=== PATIENT | female | born 1995 | race Two or more races ===

== ENCOUNTER 2022-04-29 11:33 | Emergency (ER) | payer SELFPAY ==
[~2022-04-29] VITALS: Ht 172.7 cm; Wt 49.9 kg
--- NOTE | 2022-04-29 12:02 | NUR ---
patient came back from ct
[2022-04-29] MEDS ORDERED: LIDOCAINE 1%-EPI 1:100,000 20 ML VIAL ONE (12:48)
[2022-04-29 13:36] VITALS: BP 125/64
--- NOTE | 2022-04-29 13:37 | NUR ---
Patient discharged to home in stable condition. Written and verbal after care instructions given. Patient verbalizes understanding of instruction.
== END 2022-04-29 13:37 | disposition home or self-care (01) ==
LOC: ER 11:42
DX: S01.01XA Laceration without foreign body of scalp, initial encounter (principal); W10.9XXA Fall (on) (from) unspecified stairs and steps, initial encounter; Y93.89 Activity, other specified; Y92.89 Other specified places as the place of occurrence of the external cause; Y99.8 Other external cause status
CPT/HCPCS: 99284; 70450; 12002; A6403 ×2; J3490